=== PATIENT | male | born 1980 | race Caucasian/White ===

== ENCOUNTER 2021-02-22 13:34 | Emergency (ER) | payer BC, SELFPAY ==
--- NOTE | ~2021-02-22 | XR_ITS ---
EXAMINATION: XR elbow RT min 3V DATE: 02/22/2021 13:55 INDICATION: Right elbow injury and pain. TECHNIQUE: 4 views of right elbow were obtained. COMPARISON: None. FINDINGS: Bone alignment is normal. No fracture. Joint spaces are well maintained. There is no elbow joint effusion. IMPRESSION: 1. No fracture. Reviewed, dictated and finalized at location A. IMPRESSION: 1. No fracture.
[2021-02-22 13:44] VITALS: BP 142/85; PULSE 78; RESP 16; TEMP 36.8; O2SAT 99
--- NOTE | 2021-02-22 13:44 | ED.UPPEXIN ---
HPI - Extremity Injury (Upper) General Chief Complaint: Extremity Injury, Upper Stated Complaint: Right arm injury Time Seen by Provider: 02/22/21 13:44 Source: patient and RN notes reviewed History of Present Illness HPI narrative: Patient is a 40-year-old male who presents the urgent care with complaints of severe right elbow pain. Patient states that he slammed his elbow into a shelf last night. States that he took ibuprofen earlier today without much relief. Patient denies of any other acute complaints or injuries. No acute distress noted. Patient aware of the plan of care. Some parts of this dictation were generated by voice recognition software and may contain typographical and/or grammatical inaccuracies. Related Data Home Medications Medication Instructions Recorded Confirmed alprazolam 0.5 mg PO DAILY 02/22/21 02/22/21 Allergies Allergy/AdvReac Type Severity Reaction Status Date / Time No Known Allergies Allergy Unverified 02/22/21 14:04 Review of Systems Review of Systems: Narrative: CONSTITUTIONAL: Denies fever, chills, or sweats. EYES: Denies visual changes, redness, or discharge. ENT: Denies rhinorrhea, congestion, sore throat, or otalgia. CARDIOVASCULAR: Denies chest pain, palpitations, or edema. RESPIRATORY: Denies cough or dyspnea. GASTROINTESTINAL: Denies abdominal pain, nausea, vomiting, or diarrhea. GENITOURINARY: Denies dysuria or hematuria. SKIN: Denies rash or itching. MUSCULOSKELETAL: Reports of right elbow pain and swelling NEUROLOGIC: Denies headache, numbness, or weakness. All other systems reviewed are negative, except as documented in HPI. PMFSH Comments At the time of my signature, I reviewed and agree with the nursing past medical, surgical, social, and family history. There is no relevant family history pertinent to the patient complaint. Exam Narrative: Exam Narrative: GENERAL: This is a well-nourished, well-developed patient, in no apparent distress. HEAD: normocephalic, atraumatic. EYES: PERRL. Sclera clear/white. Vision is grossly intact. EARS: External ears normal NOSE: External nose normal with no obvious nasal discharge, nares without redness, no rhinorrhea. THROAT: Mucous membranes moist NECK: Neck supple CARDIOVASCULAR: Regular rate and rhythm without murmurs, gallops, or rubs. RESPIRATORY: Clear to auscultation. Breath sounds equal bilaterally. No wheezes, rales, or rhonchi. SKIN: warm, intact with no suspicious lesions or rash, good texture and turgor. NEURO: awake, alert, and oriented to person, place and time. There were no obvious focal neurologic abnormalities. EXTREMITIES: Mild edema noted to the right elbow without obvious deformity, erythema or ecchymosis. Range of motion difficult due to pain. Increased pain with internal rotation. Positive strong right radial pulse with capillary refill less than 2 seconds. BACK: Nontender without deformity or crepitance. No flank tenderness. Course Vital Signs Vital signs: Vital Signs Temperature 98.3 F 02/22/21 13:44 Pulse Rate 78 02/22/21 13:44 Respiratory Rate 16 02/22/21 13:44 Blood Pressure 142/85 H 02/22/21 13:44 Pulse Oximetry 99 02/22/21 13:44 Temperature 98.3 F 02/22/21 13:44 Pulse Rate 78 02/22/21 13:44 Respiratory Rate 16 02/22/21 13:44 Blood Pressure 142/85 H 02/22/21 13:44 Pulse Oximetry 99 02/22/21 13:44 Reviewed-patient is informed that they may have pre-hypertension or hypertension based on a blood pressure reading in the department. I recommend the patient call the primary care provider listed on their discharge instructions or a physician of their choice this week to arrange follow-up for further evaluation of possible pre-hypertension or hypertension. MDM - Extremity Injury (Upper) MDM Narrative Medical decision making narrative: Reviewed x-ray results with the patient. He is aware that there is no fracture or deformity noted on x-ray. Advised the patient to use
== END 2021-02-22 14:15 | disposition home or self-care (01) ==
PROVIDERS: Emergency Provider Nurse Practitioner Family; PCP Internal Medicine
DX: S50.01XA Contusion of right elbow, initial encounter (principal); W22.8XXA Striking against or struck by other objects, initial encounter
CPT/HCPCS: 73080; 99213; G0463

== ENCOUNTER 2022-12-29 10:33 | Emergency (ER) | payer BC, SELFPAY ==
[2022-12-29 10:38] VITALS: BP 147/93; PULSE 80; RESP 20; TEMP 36.6; O2SAT 100
--- NOTE | 2022-12-29 10:46 | ED.EAR ---
HPI - Ear Problem General Chief complaint: Ear Stated complaint: ear infection History of Present Illness HPI Narrative: PATIENT PRESENTS WITH LEFT EAR PAIN. PATIENT STATES HE HAS OCCASIONAL DRAINAGE FROM THE EAR. NO FEVER NO COUGH NO RUNNY NOSE. Related Data Home Medications Medication Instructions Recorded Confirmed alprazolam 0.5 mg tablet 0.5 mg PO DAILY 02/22/21 02/22/21 rivaroxaban 20 mg tablet (Xarelto) mg 12/29/22 Allergies Allergy/AdvReac Type Severity Reaction Status Date / Time No Known Allergies Allergy Unverified 02/22/21 14:04 Review of Systems Review of Systems: CONSTITUTIONAL: DENIES FEVER, CHILLS, OR SWEATS. EYES: DENIES VISUAL CHANGES, REDNESS, OR DISCHARGE. ENT: DENIES RHINORRHEA, CONGESTION, SORE THROAT, OR OTALGIA. CARDIOVASCULAR: DENIES CHEST PAIN, PALPITATIONS, OR EDEMA. RESPIRATORY: DENIES COUGH OR DYSPNEA. GASTROINTESTINAL: DENIES ABDOMINAL PAIN, NAUSEA, VOMITING, OR DIARRHEA. GENITOURINARY: DENIES DYSURIA OR HEMATURIA. SKIN: DENIES RASH OR ITCHING. MUSCULOSKELETAL: DENIES BACK PAIN, JOINT PAIN, OR MYALGIA. NEUROLOGIC: DENIES HEADACHE, NUMBNESS, OR WEAKNESS. PSYCHIATRIC: DENIES ANXIETY OR DEPRESSION. PMFSH Comments AT TIME OF SIGNATURE, AGREE WITH NURSING PAST MEDICAL, SURGICAL, SOCIAL AND FAMILY HISTORY. THERE IS NO RELEVANT FAMILY HISTORY PERTINENT TO THE PRESENTING COMPLAINT Exam Narrative: GENERAL: WELL-APPEARING, WELL-NOURISHED, AND IN NO ACUTE DISTRESS. HEAD: NORMOCEPHALIC, ATRAUMATIC. EYES: PERRLA AND EOMI. ENT: NARES CLEAR, NO RHINORRHEA OR EPISTAXIS. MUCOUS MEMBRANES MOIST. NECK: SUPPLE. CHEST: CLEAR TO AUSCULTATION. NO RESPIRATORY DISTRESS. HEART: REGULAR RATE AND RHYTHM. NO MURMUR HEARD. NORMAL PERIPHERAL PULSES. ABDOMEN: SOFT, NONTENDER, NONDISTENDED, NORMAL ACTIVE BOWEL SOUNDS. EXTREMITIES: NORMAL RANGE OF MOTION. NO EDEMA. SKIN: WARM, DRY, NO RASH. NEURO: NO FOCAL DEFICITS. ALERT AND ORIENTED X3. REAL COMA SCALE EYE OPENING: SPONTANEOUS 4 REAL COMA SCALE MOTOR: OBEYS COMMANDS 6 REAL COMA SCALE VERBAL: ORIENTED 5 REAL COMA SCALE TOTAL 15 HENMT: Ears: Abnormal EAC present erythema on the left and EAC tenderness on the left Course Course Level of Care: Express Care Visit Vital Signs Vital signs: Vital Signs Temperature 36.6 C 12/29/22 10:38 Pulse Rate 80 12/29/22 10:38 Respiratory Rate 20 12/29/22 10:38 Blood Pressure 147/93 H 12/29/22 10:38 Pulse Oximetry 100 12/29/22 10:38 Oxygen Delivery Room Air 12/29/22 10:38 Temperature 36.6 C 12/29/22 10:38 Pulse Rate 80 12/29/22 10:38 Respiratory Rate 20 12/29/22 10:38 Blood Pressure 147/93 H 12/29/22 10:38 Pulse Oximetry 100 12/29/22 10:38 Oxygen Delivery Room Air 12/29/22 10:38 PLEASE RUPESH SCHEDULE A FOLLOWUP VISIT WITH YOUR PERSONAL PHYSICIAN FOR FURTHER EVALUATION AND TREATMENT. INCLUDING RECHECK AND DISCUSSION OF YOUR BLOOD PRESSURE. IF YOUR SYMPTOMS PERSIST, CHANGE OR WORSEN SIGNIFICANTLY BEFORE YOU CAN CONTACT YOUR PERSONAL PHYSICIAN THEN PLEASE, WITHOUT DELAY, GO TO THE EMERGENCY DEPARTMENT FOR FURTHER EVALUATION Medical Decision Making Vital Signs Vital Signs: Vital Signs Temperature 36.6 C 12/29/22 10:38 Pulse Rate 80 12/29/22 10:38 Respiratory Rate 20 12/29/22 10:38 Blood Pressure 147/93 H 12/29/22 10:38 Pulse Oximetry 100 12/29/22 10:38 Oxygen Delivery Room Air 12/29/22 10:38 Temperature 36.6 C 12/29/22 10:38 Pulse Rate 80 12/29/22 10:38 Respiratory Rate 20 12/29/22 10:38 Blood Pressure 147/93 H 12/29/22 10:38 Pulse Oximetry 100 12/29/22 10:38 Oxygen Delivery Room Air 12/29/22 10:38 Discharge Plan Discharge Clinical Impression: Otitis externa Patient Disposition: Home, Self-Care Condition: Stable Instructions: Antibiotic Form, Ciprofloxacin/Dexamethasone (Into the ear), Ear Infection (AC) Additional Instructions: can use a heating pad on ear or a warm wet washcloth to the outer
== END 2022-12-29 10:54 | disposition home or self-care (01) ==
PROVIDERS: Emergency Provider Nurse Practitioner Family; PCP Emergency Medicine
DX: H60.92 Unspecified otitis externa, left ear (principal); Z86.718 Personal history of other venous thrombosis and embolism
CPT/HCPCS: 99213; G0463

== ENCOUNTER 2023-09-07 14:16 | Emergency (ER) | payer OTHER, SELFPAY ==
[2023-09-07 14:22] VITALS: BP 143/72; PULSE 71; RESP 20; TEMP 36.8; O2SAT 99
[2023-09-07 14:29] VITALS: BP 143/72; PULSE 71; RESP 20; TEMP 36.8; O2SAT 99
--- NOTE | 2023-09-07 15:08 | ED.GENADULT ---
HPI - General Adult General Chief complaint: Ear Stated complaint: Ear Irritation Source: patient Mode of arrival: ambulatory Limitations: no limitations History of Present Illness HPI narrative: Patient presents for evaluation of bilateral ear pain for last week. He wears earbuds for work and has recurrent ear infections 2/2 use. He states he had a skull fracture and inner ear trauma in the past and had reconstructive surgery on the right ear. 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 His hearing on the left has been slightly decreased in the last week. He has been rubbing his ears and has a small amount of fluid draining from his ears, per his reports. No fever, chills, nausea, vomiting or sore throat. He smokes 1 ppd. Related Data Home Medications Medication Instructions Recorded Confirmed alprazolam 0.5 mg tablet 0.5 mg PO DAILY 02/22/21 02/22/21 Allergies Allergy/AdvReac Type Severity Reaction Status Date / Time No Known Allergies Allergy Unverified 02/22/21 14:04 Review of Systems Review of Systems: CONSTITUTIONAL: Denies fever, chills, or sweats. EYES: Denies visual changes, redness, or discharge. ENT: Reports bilateral ear pain with a small amount of fluid draining from both ears. Reports permanent hearing loss on the right and mild decrease in hearing on the left side as of this week. Denies rhinorrhea, congestion, sore throat, or otalgia. CARDIOVASCULAR: Denies chest pain, palpitations, or edema. RESPIRATORY: Denies cough or dyspnea. GASTROINTESTINAL: Denies abdominal pain, nausea, vomiting, or diarrhea. GENITOURINARY: Denies dysuria or hematuria. SKIN: Denies rash or itching. MUSCULOSKELETAL: Denies back pain, joint pain, or myalgia. NEUROLOGIC: Denies headache, numbness, dizziness, or weakness. PSYCHIATRIC: Denies anxiety or depression. [facility] Past Medical History Medical History Traumatic injury of right middle ear Surgical History Surgical History History of ear surgery Family History Family History Mother Family history non-contributory Social History Social History Smoking packs per day: 1 Smoking cigarettes per day: 20.0 Smoking status: Current every day smoker Tobacco type: cigarettes Substance use: never Gender identity (if verbalized by the patient): Male Spiritual care concerns: No Exam Narrative: GENERAL: Well-appearing, well-nourished, and in no acute distress. HEAD: Normocephalic, atraumatic. EYES: PERRLA and EOMI. ENT: Nares clear, no rhinorrhea or epistaxis. Mucous membranes moist. Oropharynx without tonsillar hypertrophy exudate or other lesions. Bilateral ear canals are erythematous. There are opacities noted to the bilateral tympanic membranes, right greater than left. Right TM appears erythematous NECK: Supple. No adenopathy or masses. No carotid bruits or JVD CHEST: Clear to auscultation. No respiratory distress. No wheezes rales or rhonchi HEART: Regular rate and rhythm. No murmur heard. Normal peripheral pulses. ABDOMEN: Soft, nontender, nondistended, normal active bowel sounds. EXTREMITIES: Normal range of motion. No edema. SKIN: Warm, dry, no rash. NEURO: No focal deficits. Alert and oriented x3. PSYCH: Normal mood and affect. Course Course Emergency Course: This is a 42-year-old male who presented for evaluation bilateral ear pain and drainage. He has evidence of otitis externa. Will tx with ofloxacin. He appears to have otitis media on right however it is difficult to make a definitive diagnosis based on opacities present. With history of smoking he could have otitis media 2/2 eustachian tube dysfunction associated with smoking. Increase hydration. Take abx as directed. Recommen
== END 2023-09-07 15:11 | disposition home or self-care (01) ==
PROVIDERS: Emergency Provider Nurse Practitioner; PCP Emergency Medicine
DX: H66.93 Otitis media, unspecified, bilateral (principal); F17.210 Nicotine dependence, cigarettes, uncomplicated
CPT/HCPCS: 99213; G0463